=== PATIENT | female | born 1965 | race Caucasian/White ===

== ENCOUNTER 2024-02-12 14:08 | Outpatient (CLI) | payer BC, SELFPAY ==
--- NOTE | ~2024-02-12 | US_ITS ---
EXAMINATION: US thyroid DATE: 02/12/2024 14:24 INDICATION: Thyroid nodule. TECHNIQUE: Multiple ultrasound images of the thyroid were obtained. COMPARISON: None. FINDINGS: The right thyroid lobe measures 5.8 x 2.7 x 2.3 cm. The left thyroid lobe is absent. In the right th yroid lobe, there is a 16 mm mixed cystic and solid, isoechoic, wider than tall nodule with ill-defin ed margin without echogenic foci (TI-RADS TR2). In the right thyroid lobe, there is a 12 mm mixed cys tic and solid, isoechoic, wider than tall nodule with ill-defined margin without echogenic foci (TR2) . IMPRESSION: 1. Thyroid nodules, likely not clinically significant. No follow-up is needed. Reviewed, dictated and finalized at location A.
== END 2024-02-12 14:09 | disposition home or self-care (01) ==
PROVIDERS: PCP Internal Medicine; Visit Provider Internal Medicine
DX: E04.2 Nontoxic multinodular goiter (principal); E04.1 Nontoxic single thyroid nodule
CPT/HCPCS: 76536

== ENCOUNTER 2024-11-27 12:45 | Outpatient (CLI) | payer BC, SELFPAY ==
--- NOTE | ~2024-11-27 | MM_ITS ---
EXAMINATION: MM screening [facility] BI w jayden INDICATION: Asymptomatic, referred for screening mammogram COMPARISON: None available TECHNIQUE: Digital Breast Tomosynthesis CC, MLO views of Both breasts were obtained with computer-aided detection to assist in interpretation of the study. FINDINGS: There are scattered areas of fibroglandular density. There is a focal asymmetry in the outer central right breast at anterior third. There is an asymmetry seen on the cc view in the lateral left breast centered at posterior depth. Elsewhere, there are no mammographic features of malignancy. IMPRESSION: Bilateral breast asymmetries. RECOMMENDATION: Bilateral breast Diagnostic mammogram with true lateral, appropriate spot compression views and an ultrasound if needed. BI-RADS Category 0: Incomplete: Needs additional imaging evaluation. Reviewed, dictated and finalized at location B. IMPRESSION: Bilateral breast asymmetries. RECOMMENDATION: Bilateral breast Diagnostic mammogram with true lateral, appropriate spot compr ession views and an ultrasound if needed. BI-RADS Category 0: Incomplete: Needs additional imaging evaluation.
== END 2024-11-27 12:46 | disposition home or self-care (01) ==
LOC: MICIMG 12:46
PROVIDERS: PCP Internal Medicine; Visit Provider Obstetrics & Gynecology
DX: Z12.31 Encounter for screening mammogram for malignant neoplasm of breast (principal); R92.8 Other abnormal and inconclusive findings on diagnostic imaging of breast
CPT/HCPCS: 77063; 77067

== ENCOUNTER 2024-12-27 08:54 | Outpatient (CLI) | payer BC, SELFPAY ==
--- NOTE | ~2024-12-27 | MMUS_ITS ---
EXAMINATION: MM diagnostic [facility] BI w jayden, US breast RT limited INDICATION: 59-year old female; BI-RADS 0, bilateral breast findings. COMPARISON: 11/27/2024 through 05/24/2021 TECHNIQUE: Digital breast tomosynthesis bilateral True lateral and spot compression views of BILATERAL breast were obtained with computer-aided detection to assist in interpretation of the study. FINDINGS: There are scattered areas of fibroglandular density. The focal asymmetry of concern in the outer central right breast persists as a circumscribed mass. Ultrasound was performed for further evaluation. The asymmetry of concern in the lateral left breast effaces on spot compression views compatible with superimposition of fibroglandular tissue. RIGHT BREAST ULTRASOUND FINDINGS: Targeted evaluation of the area of concern was completed. There is a 1.14 x 0.67 x 0.54 cm septated cyst at 9:00 location 2 cm from the nipple in the RIGHT breast that correlates to the area of Mammographic finding. IMPRESSION: Benign RIGHT breast cyst correlates to mammographic finding. No further investigation necessary. Left breast asymmetry represents superimposition of fibroglandular tissue. No further investigation necessary RECOMMENDATION: ANNUAL SCREENING BILATERAL MAMMOGRAPHY BI-RADS 2, BENIGN Reviewed, dictated and finalized at location B. [facility] NURSING IMPRESSION: Benign RIGHT breast cyst correlates to mammographic finding. No further investi gation necessary. Left breast asymmetry represents superimposition of fibroglandular tissue. No f urther investigation necessary RECOMMENDATION: ANNUAL SCREENING BILATERAL MAMMOGRAPHY BI-RADS 2, BENIGN
--- OUTSIDE RECORDS SUMMARY | 2024-12-27 09:25 | XMS_ITS | Clinical Summary ---
Author Organization 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 Active fluticasone (FLONASE) 50 MCG/ACT NA SUSP 1-2 Sprays by Nasal route daily as needed. Use in each nostril as directed. Active albuterol 90 MCG/ACT IN AERS take 1-2 Puffs by inhalation every 4 hours as needed. Active Multiple Vitamin (MULTI-VITAMIN) PO TABS Take 1 Tab by mouth daily. Active cetirizine 10 MG PO TABS Take 10 mg by mouth daily. Active montelukast 10 MG PO TABS Take 10 mg by mouth every evening. Active oxyCODONE-aceta minophen 5-325 MG PO TABS Take 1-2 Tabs by mouth every 4 hours as needed for Pain. 60 Tab 0 3 Active ibuprofen 800 MG PO TABS Take 1 Tab by mouth every 8 hours as needed. 60 Tab 0 3 Active Active Problems Problem Noted Date Diagnosed Date ESME (stress urinary incontinence, female) 2012 Overview (02/05/2013): 02/05/13 TVT Asthma 12/27/2011 Migraines 12/27/2011 Immunizations Immunization Administration Dates Next Due Influenza Vaccine greater than 3 yrs 11/19/2012, 11/09/2010 PUR FLU PRES FREE AGE 3+ FULL IM 12/27/2011 TDAP Vaccine 12/12/2007 Family History Medical History Relation Name Comments Alcohol Abuse Other Alzheimer's Disease Other High Cholesterol Other Hypertension Other Prostate Cancer Other Skin Cancer Other Breast Cancer Neg Hx Ovarian Cancer Neg Hx Relation Name Status Comments Other Social History Tobacco Use Types Packs/Day Years Used Date Smoking Tobacco: Never Smokeless Tobacco: Never Alcohol Use Standard Drinks/Week Comments Yes 8.3 (1 standard drink = 0.6 oz p ure alcohol) Comments No Sex and Gender Information Value Date Recorded Sex Assigned at Not on file Legal Sex Female 2:56 AM GLOVE CUFFER Gender Identity Not on file Sexual Orientation Not on file Last Filed Vital Signs Vital Sign Reading Time Taken Comments Blood Pressure 150/92 03/20/2013 2:12 PM GLOVE CUFFER Pulse 88 03/20/2013 2:12 PM GLOVE CUFFER Temperature 36.5 C (97.7 F) 02/06/2013 11:38 AM GLOVE CUFFER Respiratory Rate 16 03/20/2013 2:12 PM GLOVE CUFFER Oxygen Saturation 99% 02/06/2013 11:38 AM GLOVE CUFFER Inhaled Oxygen Concentration - - Weight 63.5 kg (140 lb) 03/20/2013 2:12 PM GLOVE CUFFER Height 165.1 cm (5' 5) 03/20/2013 2:12 PM GLOVE CUFFER Body Mass Index 23.3 03/20/2013 2:12 PM GLOVE CUFFER Plan of Treatment Health Maintenance Due Date Last Done Comments Hepatitis C Virus (HCV) Screening 1965 Pneumococcal Immunization (5 0+ years) (1 of 2 - PCV) 01/29/1983 Cologuard 01/29/2009 Colonoscopy 01/29/2009 Colorectal Cancer Screening 01/29/2009 Immunochemical Fecal Occult Blood 01/29/2009 Zoster Immunization (1 of 2) 01/29/2014 Respiratory Syncytial Virus (RSV) Immunization (Adult) (1 - Risk 60-74 years 1-dose series) 2024 Influenza Immunization (#1) 10/21/202410/23, 12/27/2011, 11/09/2010 SARS-COV-2 Immunization (1 - season) 2024 DTaP/Tdap/Td Immunization Discontinued 12/12/2007 Mammogram Discontinued 12/28/2012, 12/21/2011 Hepatitis B Immunization Aged Out No longer eligible based on patient's age to complete this topic Human Papillomavirus (HPV) Immunization Aged Out No longer eligible based on patient's age to complete this topic Meningococcal Immunization (ACWY) Aged Out No longer eligible based on patient's age to complete this topic Rotavirus Immunization Aged Out No lo nger eligible based on patient's age to complete this topic Medical Devices Implanted Type Area Recovery Unit Operator Device Identifier Shelf Expiration Date Model / Serial / Lot Sling Advantage Mid-Ureth System - [id number] Implanted:Qty: 1 on 02/05/2013 by Moi Callahan MD at [facility] [employer]PL[employer] / GYNECOLOGY 11/21/2015 [id number] / / [id number] Procedures Procedure Name Priority Date/Time Associated Diagnosis Comments ALLA SCREENING BILATERAL DIGITAL W CAD W ABIODUN Routine 12/28/2012 8:39 AM GLOVE CUFFER Other screening mammogram from Last 3 Months or Most Recently Relevant to Health Maintenance Results * ALLA SCREENING BILATERAL DIGITAL W CAD W ABIODUN (12/28/2012 8:39 AM GLOVE CUFFER) Anatomical Region Laterality Modality breast Bilateral Mammography 12/28/2012 8:39 AM GLOVE CUFFER Impressions 12/28/2012 2:56 PM GLOVE CUFFER IMPRESSION: No suspicious mammographic findings. RECOMMENDATION: Annual mammography. BI-RADS: 1 - Negative. Narrative 12/28/2012 2:56 PM GLOVE CUFFER DICTATING PHYSICIAN: Praveen Lee M.D. EXAM: [facility] SCREENING BILATERAL DIGITAL W CAD W ABIODUN DATE: Dec 28, 2012 08:39:00 AM COMPARISON: 12/21/2011 and 11/12/2008 INDICATION: Routine screening. FINDINGS: Study is interpreted with Computer-Aided Detection (CAD). Additional 3-D tomographic mammography was performed (TOMOSYNTHESIS, consisting of multiplanar projections with computer image 1-mm parallel slice-thickness reconstruction). Breast tissue is heterogeneously dense, which decreases the sensitivity of mammography. There is no significant change in the mammographic appearance of either breast compared with prior examinations. No architectural distortion, significant masses, or suspicious microcalcifications are demonstrated. . Procedure Note Praveen Lee MD - 12/28/2012 DICTATING PHYSICIAN: Praveen Lee M.D. EXAM: ALLA SCREENING BILATERAL DIGITAL W CAD W ABIODUN DATE: Dec 28, 2012 08:39:00 AM COMPARISON: 12/21/2011 and 11/12/2008 INDICATION: Routine screening. FINDINGS: Study is interpreted with Computer-Aided Detection (CAD). Additional 3-D tomographic mammography was performed (TOMOSYNTHESIS,consisting of multiplanar projections with computer image 1-mm parallelslice-thickness reconstruction). Breast tissue is heterogeneously dense, which decreases the sensitivity ofmammography. There is no significant change in the mammographic appearance of eitherbreast compared with prior examinations. No architectural distortion, significant masses, or suspiciousmicrocalcifications are demonstrated. . IMPRESSION: No suspicious mammographic findings. RECOMMENDATION: Annual mammography. BI-RADS: 1 - Negative. Any Ulloa MD IMG MAMMO ORDERABLES Final Result from Last 3 Months or Most Recently Relevant to Health Maintenance Insurance [facility] Advance Directives * Full Code (Latest Code Status on File) Date Activated Date Inactivated Comments 02/05/2013 6:51 AM 02/06/2013 5:55 PM
--- OUTSIDE RECORDS SUMMARY | 2024-12-27 09:25 | XMS_ITS | Clinical Summary ---
Author Organization [place] [id number] [facility] Address [address] [place] [address] Care Team Providers Care District Resource Officer Name Role Phone Alex Mejia MD Primary Care Provider Minor Muniz MD Unavailable [phone] Allergies Active Allergy Reactions Criticality Noted Date Comments Neomycin Hives Medium 11/02/2022 Sulfa Rash Medium 11/02/2022 Medications lisinopriL (PRINIVIL,ZESTR IL) 10 mg tablet Take 1 tablet (10 mg total) by mouth daily 3 Active fluticasone propionate (FLONASE) 50 mcg/actuation nasal spray Administer 1-2 sprays into affected nostril(s) daily as needed Active fexofenadine (MERARI) 180 mg tablet Take 1 tablet (180 mg total) by mouth daily Active Active Problems Problem Noted Date Diagnosed Date 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 4 or more times a week 11/15/2022 Q2: How many drinks containi ng alcohol do you have on a typical day when you are drinking? 1 or 2 3 Q3: How often do you have si x or more drinks on one occasion? Less than monthly 11/15/2022 Personal Safety Answer Date Recorded Have you ever been in or are you currently in a harmful physical or emotional relationship or is someone making you feel afraid or unsafe? Denies 11/15/2022 Comments No Sex and Gender Information Value Date Recorded Sex Assigned at Not on file Legal Sex Female 12:57 PM CDT Gender Identity Not on file Sexual Orientation Not on file Last Filed Vital Signs Vital Sign Reading Time Taken Comments Blood Pressure 158/89 11/15/2022 8:52 AM CDT Pulse 68 11/15/2022 8:52 AM CDT Temperature 36.3 C (97.4 F) 11/15/2022 7:47 AM CDT Respiratory Rate 18 11/15/2022 8:52 AM CDT Oxygen Saturation 100% 11/15/2022 8:52 AM CDT Inhaled Oxygen Concentration - - Weight - - Height - - Body Mass Index - - Plan of Treatment Health Maintenance Due Date Last Done Comments Colon Cancer Screening-Colonoscopy 1965 Depression Screening 1965 Hepatitis C Screening 1965 Hepatitis B Screening 01/29/1982 Regular Well Visit/Exam 18-64 01/29/1982 Pneumococcal vaccine <65 (1 of 2 - PCV) 01/29/1983 Breast Cancer Screening-Mammogram 12/28/2013 013, 12/21/2011 DTaP/Tdap/Td Vaccine (2 - Td or Tdap) 12/11/2017 12/12/2007 Covid-19 Vaccine (2024-2 6 season) 2024 12/08/2021, 01/27/2021, 06/12/2020, Additional history exists Influenza Vaccine (#1) 2024 , 11/27/2020, 12/14/2018, Additional history exists Zoster Vaccine Completed 06/01/2022, 03/21/2022 Insurance [employer] ACCESS OOS Care Teams District Resource Officer Relationship Specialty Start Date End Date Alex Mejia MD [address] [facility] [address] [place] [address] PCP - General Internal Medicine 11/02/22 Minor Muniz MD [facility] [facility] [address] Consulting Physician Plastic Surgery 11/15/22
== END 2024-12-27 08:55 | disposition home or self-care (01) ==
LOC: CHSIMG 08:54
PROVIDERS: PCP Internal Medicine; Visit Provider Obstetrics & Gynecology
DX: N64.89 Other specified disorders of breast (principal)
CPT/HCPCS: 76642; 77062; 77066; G0279

== ENCOUNTER 2025-01-31 08:05 | Outpatient (CLI) | payer BC, SELFPAY ==
[2025-01-31 18:09] LABS: Hematocrit 43.1 % (37.0-47.0); Hemoglobin 14.0 g/dL (12.0-15.0); Immature Granulocyte Percent A 0.3 % (0-0.5); Lymphocytes Absolute Auto 2.44 K/mm3 (0.9-3.2); Mean Corpuscular HGB Conc 32.5 g/dl (32-36); Mean Corpuscular Hemoglobin 32.4 pg (26-34); Mean Corpuscular Volume 99.8 fl (80-100); Nucleated Red Blood Cells Absolute Auto 0.000 K/mm3 (0.0-0.012); Nucleated Red Blood Cells Perc 0.0 % (0.0-0.2); Platelet Count Result 216 k/mm3 (150-375); Red Blood Count 4.32 M/mm3 (4.2-5.4); White Blood Count 6.4 K/mm3 (4.5-10.0)
[2025-01-31 18:42] LABS: Alanine Aminotransferase 21 U/L (6-35); Albumin Level 4.1 g/dL (3.5-5.1); Alkaline Phosphatase 108 U/L (38-126); Anion Gap 3 mmol/L (4-12); Aspartate Amino Transferase 37 U/L (14-36); Bilirubin,Total 0.7 mg/dL (0.2-1.3); Blood Urea Nitrogen 16 mg/dL (7-17); Calcium 9.4 mg/dL (8.4-10.2); Carbon Dioxide 30 mmol/L (22-30); Chloride 105 mmol/L (98-107); Cholesterol 205 mg/dL (0-200); Estimated Glomerular Filt Rate > 60; Glucose 87 mg/dL (65-110); HDL Direct 83 mg/dL; Potassium 4.5 mmol/L (3.4-5.0); Sodium 138 mmol/L (137-145); Total Protein 7.3 g/dL (6.3-8.2); Triglycerides 69 mg/dL (<150)
[2025-01-31 19:45] LABS: Thyroid Stimulating Hormone 1.060 uIU/mL (0.465-4.680)
[2025-01-31 19:46] LABS: Free T4 Free Thyroxine 0.84 ng/dL (0.78-2.19)
== END 2025-01-31 08:06 | disposition home or self-care (01) ==
LOC: ANHGOSHLAB 08:06
PROVIDERS: PCP Internal Medicine; Visit Provider Internal Medicine
DX: Z00.00 Encounter for general adult medical examination without abnormal findings (principal); H53.9 Unspecified visual disturbance; E55.9 Vitamin D deficiency, unspecified
CPT/HCPCS: 36415; 80053; 80061; 82306; 84439; 84443; 85025; 85652